=== PATIENT | male | born 1945 | race Caucasian/White ===

== ENCOUNTER 2024-07-03 23:30 | Emergency (ER) | payer OTHER ==
[~2024-07-03] VITALS: Ht 180.3 cm; Wt 97.5 kg
[2024-07-03 23:40] VITALS: BP_SYST 156; PULSE 100; RESP 18; TEMP 97.2; O2SAT 98
[2024-07-04 00:36] LABS: BILIRUBIN,URINE NEGATIVE (NEGATIVE); BLOOD, URINE 1+ (NEGATIVE); COLOR,URINE YELLOW (YELLOW); GLUCOSE,URINE NEGATIVE (NEGATIVE); KETONES,URINE NEGATIVE (NEGATIVE); LEUKOCYTE ESTERASE ,URINE 2+ (NEGATIVE); NITRITE, URINE POSITIVE (NEGATIVE); PROTEIN URINE 1+ (NEGATIVE); UROBILINOGEN,URINE 0.2 (0.2-1.0)
[2024-07-04 00:50] LABS: CLARITY/URINE CLOUDY (CLEAR)
[2024-07-04 00:51] LABS: BACTERIA,URINE MANY /HPF (None Seen); WBC,URINE >100 /HPF (0-3)
[2024-07-04 01:59] LABS: BASOPHILS % (AUTO) 0.2 % (0.0-2.0); EOSINOPHILS % (AUTO) 0.1 % (0.0-4.0); HEMATOCRIT 35.2 % (36-54); HEMOGLOBIN 12.3 g/dL (14.0-18.0); LYMPHOCYTES % (AUTO) 7.2 % (20.5-51.5); MEAN CORPUSCULAR HEMOGLOBIN 29 pg (27-31); MEAN CORPUSCULAR HGB CONC 35 % (32-36); MEAN CORPUSCULAR VOLUME 84 fL (79.0-98.0); MONOCYTES # (AUTO) 1.2 K/uL (0.0-1.0); MONOCYTES % (AUTO) 8.4 % (1.7-9.3); NEUTROPHILS % (AUTO) 84.1 % (40.0-70.0); PLATELET COUNT (AUTO) 192 K/uL (130-430); RED BLOOD CELL COUNT(AUTO) 4.21 MIL/uL (4.2-6.2); RED CELL DISTRIBUTION WIDTH 13.4 % (9.0-15.0); WHITE BLOOD COUNT (AUTO) 14.2 K/uL (4.8-10.8)
[2024-07-04 02:32] LABS: PROTHROMBIN TIME 11.1 SECS (9.5-12.5)
[2024-07-04 02:36] LABS: ANION GAP 8 (5-15); CALCIUM 8.9 mg/dL (8.4-11.0); CARBON DIOXIDE 27 mmol/L (23-29); CHLORIDE 102 mmol/L (98-107); CREATINE KINASE, TOTAL 100 U/L (39-308); CREATININE 1.38 mg/dL (0.55-1.30); GLUCOSE 177 mg/dL (74-106); POTASSIUM 4.1 mmol/L (3.5-5.1); SODIUM SERUM 137 mmol/L (136-145); UREA NITROGEN, BLOOD 21 mg/dL (8-21)
[2024-07-04] MEDS ORDERED: TAMS0.4C96 PO (03:12)
[2024-07-04] MEDS ORDERED: DARI7.5T17 PO (03:12)
[2024-07-04] MEDS ORDERED: MULT-1117 PO (03:12)
[2024-07-04] MEDS ORDERED: VITD2000 PO (03:12)
[2024-07-04] MEDS ORDERED: LISI40TA13 PO (03:12)
[2024-07-04] MEDS ORDERED: CYAN100010 PO (03:12)
[2024-07-04] MEDS ORDERED: LIP80 PO (03:12)
[2024-07-04] MEDS ORDERED: CLOP75TA32 PO (03:12)
[2024-07-04] MEDS ORDERED: ASCO500C18 PO (03:12)
[2024-07-04] MEDS: NACL 0.9% 1,000 ML IV ONE ×2 (03:14→04:29)
[2024-07-04] MEDS: cefTRIAXone 1 GM in D5W 50 ML IV ONE (03:53)
[2024-07-04] MEDS ORDERED: cefTRIAXone 1 GM VIAL ONE (03:54)
[2024-07-04 04:27] VITALS: BP_SYST 157; PULSE 100; RESP 16; TEMP 97.8; O2SAT 96
== END 2024-07-04 04:27 | disposition short-term general hospital (02) ==
LOC: SED 23:30
DX: N39.0 Urinary tract infection, site not specified (principal); R53.1 Weakness; R51.9 Headache, unspecified; Z86.73 Personal history of transient ischemic attack (TIA), and cerebral infarction without residual deficits; Z79.899 Other long term (current) drug therapy; Z79.2 Long term (current) use of antibiotics
CPT/HCPCS: 99285; 80048; 81001; 82550; 85025; 85610; 85730; 87040; 87086; 84484; 36415; 83605; 81000; 96365; 70450; 71045; 96361; 93005; 81015; J0696; J7030